=== PATIENT | male | born 1995 | race Caucasian/White ===

== ENCOUNTER 2022-06-18 10:45 | Outpatient (RCR) | payer BC, MEDICAID, SELFPAY | END 2022-09-21 11:21 | disposition home or self-care (01) | PROVIDERS: Visit Provider Pediatrics | DX: R51.9 Headache, unspecified (principal); M79.10 Myalgia, unspecified site; M54.2 Cervicalgia; M26.69 Other specified disorders of temporomandibular joint; Z51.89 Encounter for other specified aftercare | CPT/HCPCS: 97110; 97140; 97161 ==

== ENCOUNTER 2023-09-07 14:30 | Outpatient (RCR) | payer MEDICAID, BC, SELFPAY | END 2024-01-05 23:59 | disposition home or self-care (01) | PROVIDERS: PCP Otolaryngology; Visit Provider Psychiatry & Neurology Neurology | DX: M54.2 Cervicalgia (principal); G89.29 Other chronic pain; Z51.89 Encounter for other specified aftercare | CPT/HCPCS: 97110; 97140; 97161 ==